=== PATIENT | male | born 1945 | race Hispanic/Latino ===

== ENCOUNTER 2018-02-11 08:53 | Day surgery (SDC) | payer OTHER, MEDICARE ==
[2018-02-11] MEDS ORDERED: Phenylephrine 10 mg/ml Inj ONE (09:08)
[2018-02-11] MEDS ORDERED: Nitroglycerin 50mg in D5W 0 MG/0 ML BOTTLE IV ONE (09:09)
[2018-02-11] MEDS ORDERED: Iodixanol 320 MG/ML 200 ML BOTTLE IV ONE (09:09)
[2018-02-11] MEDS ORDERED: Iodixanol 320 MG/ML 100 ML BOTTLE IV ONE (09:09)
[2018-02-11] MEDS ORDERED: Iohexol 350mgl/ml 50 ML ONE (09:09)
[2018-02-11] MEDS ORDERED: HEPARIN SODIUM/NS 1,000 ML IV ONE (09:10)
[2018-02-11] MEDS ORDERED: Midazolam 2 MG/2 ML VIAL ONE (10:03)
[2018-02-11] MEDS ORDERED: Lidocaine 2% Inj (20ml) ONE (10:15)
[2018-02-11] MEDS ORDERED: Sodium Chloride 0.45% 1,000 ML IV SCH (11:30)
[2018-02-11 12:12] VITALS: TEMP 97.4
--- NOTE | 2018-02-11 12:51 | CARDCATH ---
PROCEDURE DATE: 02/11/2018 PROCEDURE: Right coronary artery balloon angioplasty and drug-eluting stent placement. CLINICAL INDICATIONS: 1. Chest pain. 2. Non-ST elevation myocardial infarction. 3. Coronary artery disease, history of right coronary artery stent. REFERRING PHYSICIANS: 1. Lobo Daly MD. 2. Telma Martinez MD. 3. Lydia Gustafson MD. PERFORMING PHYSICIAN: Contreras Leslie MD. BRIEF CLINICAL HISTORY: Lamont Bella is a 72-year-old gentleman with history of coronary artery disease, RCA stent several years ago, hypertension, admitted to [facility] for non-ST elevation myocardial infarction. The patient had a coronary angiogram done yesterday. The coronary angiogram has revealed a critical 99% mid to distal RCA stenosis. The patient is brought to [facility] for coronary intervention today. After informed consent, the patient was prepped and draped in the usual sterile fashion. A 2% lidocaine was given in the left groin through local anesthesia. Using micropuncture technique, a 6-Thai sheath was introduced into left common femoral artery. The patient was preloaded with aspirin, Plavix and IV heparin. ACT was maintained above 250. A 6 Thai JR4 guide catheter engaged into right coronary artery. Contrast was injected and right coronary angiogram was done. The coronary angiogram has revealed mid to distal 99% critical right coronary artery in-stent stenosis. There was a ZHANE-2 flow noted distally. The lesion was wired with Runthrough coronary wire. Predilated using 2.25 x 20 balloon. Later stented using 3 x 34 Resolute Sukhi drug-eluting stent. Excellent final angiographic results with brisk ZHANE-3 flow noted. Postprocedure, the groin hemostasis are accomplished using Mynx closure device. The patient tolerated the procedure well. The patient will be transferred to ICU for further observation. We will continue aspirin, Plavix and statins. No beta blockers or Brilinta due to low heart rate. Contreras Leslie MD
[2018-02-11 14:26] VITALS: PULSE 50; RESP 14
[2018-02-11 14:28] VITALS: BP 132/73; O2SAT 96
--- NOTE | 2018-02-12 08:53 | CARD ---
APPROVED REPORT EKG Measurement Heart [id number] TN [id number] <Conclusion> Sinus bradycardia Right bundle branch block T wave abnormality, consider inferior ischemia LVH
--- NOTE | 2018-02-13 08:51 | CON ---
DATE: 02/11/2018 CONFIGURATION MANAGEMENT ADVISOR NOTE REQUESTING PHYSICIAN: Contreras Leslie MD CHIEF COMPLAINT: The patient presented from [facility] with chest pain, coronary artery disease. HISTORY OF PRESENT ILLNESS: Mr. Bella, he is a 72-year-old male that was admitted to [facility] and evaluated for myocardial infarction, noted to have a right coronary artery lesion and the decision was made to transfer him to [facility] for angioplasty. The patient had the angioplasty and noted the right coronary artery stenosis. Stent was placed and the patient postprocedure has been admitted to the Intensive Care Unit here at [facility]. He is to be transferred back to [facility] at approximately 3 o'clock. At this time, the patient is awake and alert. No complaints of shortness of breath, cough, wheezing, chest congestion. He does have mild chest discomfort that is relieved with Tylenol. No fever or chills. PAST MEDICAL HISTORY: Significant for diabetes. ALLERGIES: HE HAS NO KNOWN ALLERGIES. CURRENT MEDICATIONS: Can be evaluated as per the nurse's intake form. SOCIAL HISTORY: Not obtained. FAMILY HISTORY: Noncontributory. REVIEW OF SYSTEMS: CONSTITUTIONAL: All negative. HEENT: All negative. RESPIRATORY: All negative. CARDIOVASCULAR: The patient had procedure for right coronary artery stenosis and myocardial infarction as well as coronary artery disease. GASTROINTESTINAL: All negative. : All negative. MUSCULOSKELETAL: All negative. NEUROPSYCHIATRIC: All negative. HEMATOLOGIC: All negative. IMMUNOLOGIC: All negative. ENDOCRINE: All negative. PHYSICAL EXAMINATION: VITAL SIGNS: Reveal heart rate of 52, blood pressure 148/83, respiratory rate of 13, O2 saturation of 99%. The patient is afebrile. HEENT: Head is atraumatic, normocephalic. EYES: Reactive to light. EAR, NOSE AND THROAT: Seemed to be within normal limits. NECK: Supple. No JVD. No thyroid enlargement or lymph nodes. HEART: Regular rate and rhythm. Normal S1, S2. LUNGS: Reveal good breath sounds bilaterally. ABDOMEN: Soft, nontender. Normal bowel sounds. No organomegaly noted. GENITALIA: Deferred. RECTAL: Deferred. MUSCULOSKELETAL: No joint deformities. EXTREMITIES: Reveal no edema. NEUROLOGICAL: He seemed to be grossly intact. LABORATORY DATA: His white count is 10.6, hemoglobin is 13.8, hematocrit 40.3 with platelets of 239,000. Sodium is 143, potassium 3.8, chloride 103, CO2 of 27 with a BUN of 15, creatinine of 0.8 and a glucose of 95. IMPRESSION: This patient had acute myocardial infarction, noted to have coronary artery disease with the right coronary artery 60% occlusion and is status post angioplasty with coronary artery stent placed. The patient does have a past history of diabetes. PLAN: The patient is scheduled to be transferred back to [facility] at 3 o'clock. He is on Norvasc, aspirin, Plavix, Lovenox, Pepcid, Crestor. Blair Holman MD
== END 2018-02-11 17:07 | disposition short-term general hospital (02) ==
LOC: CATH 08:53 → CCU 11:30 → CATH 17:07
PROVIDERS: ATTEND Internal Medicine Cardiovascular Disease
DX: I21.4 Non-ST elevation (NSTEMI) myocardial infarction (principal); T82.855A Stenosis of coronary artery stent, initial encounter; I25.10 Atherosclerotic heart disease of native coronary artery without angina pectoris; I10 Essential (primary) hypertension; E11.9 Type 2 diabetes mellitus without complications; I45.10 Unspecified right bundle-branch block; Z79.02 Long term (current) use of antithrombotics/antiplatelets; Y83.1 Surgical operation with implant of artificial internal device as the cause of abnormal reaction of the patient, or of later complication, without mention of misadventure at the time of the procedure
CPT/HCPCS: 93005; 99152; 99153; C1760; C1769 ×2; C1874; C1887; C2629; C9600; J1644 ×3; J2250; J3010; J7040; Q9966; Q9967